=== PATIENT | male | born 1975 | race Caucasian/White ===

== ENCOUNTER 2017-03-21 18:48 | Observation (INO) | payer BC ==
[~2017-03-21] VITALS: Ht 160 cm; Wt 110.0 kg
[~2017-03-21 18:48] MED LIST: LXP/20 PO
--- NOTE | 2017-03-21 19:23 | EMERGENCY ROOM VISIT NOTE ---
History Report prepared by Cole: Kristin Lagunas Under the Supervision of: Dr. Stewart Spence M.D. First contact with patient: 18:57 Chief Complaint: WEAKNESS Stated Complaint: SLURRED SPEECH,HIGH BP 158/90,DROOP IN FACE History of Present Illness The patient is a 41 year old male who presents to the Emergency Room with complaints of constant weakness for the past 3.5 hours. The patient was at work today when suddenly around 1545 he felt very weak all over. He states that he felt "drained of energy and confused." He reports having trouble focusing. After his symptoms persisted for about 15 minutes he told a coworker who is also a nurse. She checked his pulse and blood pressure. His pulse was over 100 and his BP was 158/90. He lay down on the floor for 15-20 minutes and rested. She checked his vitals again and they had improved. The patient states that he waited a few more minutes, felt better and then drove himself home. While he was driving his left arm and hand felt weaker than the right. He reports tingling and numbness in his left hand. Family states that when the patient arrived home they noticed a right-sided facial droop and his speech was slurred. This lasted for just a few minutes. The patient took an aspirin and came to the ED for further evaluation. He denies any personal history of strokes or mini-strokes. He has never experienced symptoms like this before. The patient reports that he has been having intermittent headaches recently and today had only a brief episode of a headache. He also notes trouble urinating and having a bowel movement today. The patient denies any recent trauma or fall. He denies fevers, nausea, vomiting, and diarrhea. He denies any new medications or recent changes to his medications. 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 A total of 10 systems reviewed and were otherwise negative. Past Medical & Surgical Medical Problems: (1) Anxiety Family History No pertinent history stated. Social History Smoking Status: Never Smoker Housing Status: lives with family Occupation Status: employed Current/Historical Medications Scheduled Amphetamine-Dextroamphetamine 10MG (Adderall 10MG), 10 MG PO BID Atorvastatin (Lipitor), 20 MG PO QPM Paroxetine Hcl (Paxil), 30 MG PO DAILY Trazodone Hcl (Trazodone), 50 MG PO HS Allergies Coded Allergies: Dog Dander (Verified Allergy, Unknown, ., 03/21/17) Physical Exam Vital Signs Date Time Temp Pulse Resp B/P (MAP) Pulse Ox O2 Delivery O2 Flow Rate FiO2 03/21/17 20:02 87 20 131/87 97 Room Air 03/21/17 19:13 97 Room Air 03/21/17 18:53 36.9 90 20 140/94 97 Room Air Physical Exam GENERAL: Patient is in no acute distress. HEENT: No acute trauma, normocephalic atraumatic, mucous membranes moist, no nasal congestion, no scleral icterus. NECK: No stridor, no adenopathy, no meningismus, trachea is midline. LUNGS: Clear to auscultation bilaterally, no wheeze, no rhonchi, breath sounds equal. HEART: Without murmurs gallops or rubs, regular rate and rhythm. ABDOMEN: Soft, nontender, bowel sounds positive, no hernias, no peritonitis. EXTREMITIES: No cyanosis or edema, full range of motion of all the joints without pain or difficulty, no signs for acute trauma. NEUROLOGIC: Oriented x 3, no acute motor or sensory deficits, no focal weakness. No cerebellar deficits or pronator drift. No speech slur or facial droop. SKIN: No rash, no jaundice, no diaphoresis. Medical Decision & Procedures ER Provider Diagnostic Interpretation: Radiology results as stated below per my review and radiologist interpretation: HEAD WITHOUT CONTRAST (CT) CLINICAL HISTORY: 41 years-old Male with Stroke. Acute strokelike symptoms TECHNIQUE: Multiple axial CT images of the head were obtained without contrast. A dose lowering technique was utilized adhering to the principles of ALARA. CT DOSE: 537.48 mGy.cm COMPARISON: None. FINDINGS: No acute intracranial hemorrhage, midline shift, intracranial mass, hydrocephalus, territorial ischemia or abnormal extra-axial collection. The calvarium is intact. The mastoid air cells, and middle ear cavities are clear. Minimal thickening of the right ethmoid air cells. IMPRESSION: No acute intracranial abnormality. The above report was generated using voice recognition software. It may contain grammatical, syntax or spelling errors. Electronically signed by: Robin Encarnacion M.D. 03/21/2017 7:32 PM Dictated Date/Time: 03/21/2017 7:30 PM Laboratory Results 03/21/17 19:08 Red Blood Count 4.68, Mean Corpuscular Volume 83.3, Mean Corpuscular Hemoglobin 28.4, Mean Corpuscular Hemoglobin Concent 34.1, Mean Platelet Volume 9.4, Neutrophils (%) (Auto) 63.8, Lymphocytes (%) (Auto) 28.7, Monocytes (%) (Auto) 6.4, Eosinophils (%) (Auto) 0.5, Basophils (%) (Auto) 0.3, Neutrophils # (Auto) 6.80, Lymphocytes # (Auto) 3.05, Monocytes # (Auto) 0.68, Eosinophils # (Auto) 0.05, Basophils # (Auto) 0.03 03/21/17 19:08 Test 03/21/17 19:08 03/21/17 19:20 03/21/17 20:07 03/21/17 20:09 White Blood Count 10.64 K/uL (4.8-10.8) Red Blood Count 4.68 M/uL (4.7-6.1) Hemoglobin 13.3 g/dL (14.0-18.0) Hematocrit 39.0 % (42-52) Mean Corpuscular Volume 83.3 fL (80-100) Mean Corpuscular Hemoglobin 28.4 pg (25-34) Mean Corpuscular Hemoglobin Concent 34.1 g/dl (32-36) Platelet Count 311 K/uL (130-400) Mean Platelet Volume 9.4 fL (7.4-10.4) Neutrophils (%) (Auto) 63.8 % Lymphocytes (%) (Auto) 28.7 % Monocytes (%) (Auto) 6.4 % Eosinophils (%) (Auto) 0.5 % Basophils (%) (Auto) 0.3 % Neutrophils # (Auto) 6.80 K/uL (1.4-6.5) Lymphocytes # (Auto) 3.05 K/uL (1.2-3.4) Monocytes # (Auto) 0.68 K/uL (0.11-0.59) Eosinophils # (Auto) 0.05 K/uL (0-0.5) Basophils # (Auto) 0.03 K/uL (0-0.2) RDW Standard Deviation 39.7 fL (36.4-46.3) RDW Coefficient of Variation 13.2 % (11.5-14.5) Immature Granulocyte % (Auto) 0.3 % Immature Granulocyte # (Auto) 0.03 K/uL (0.00-0.02) Prothrombin Time 11.1 SECONDS (9.0-12.0) Prothromb Time International Ratio 1.1 (0.9-1.1) Activated Partial Thromboplast Time 28.3 SECONDS (21.0-31.0) Partial Thromboplastin Ratio 1.1 Anion Gap 9.0 mmol/L (3-11) Est Creatinine Clear Calc Drug Dose 98.5 ml/min Estimated GFR () 96.5 Estimated GFR (Non- 83.3 BUN/Creatinine Ratio 11.7 (10-20) Calcium Level 9.2 mg/dl (8.5-10.1) Magnesium Level 2.1 mg/dl (1.8-2.4) Total Bilirubin 0.3 mg/dl (0.2-1) Direct Bilirubin < 0.1 mg/dl (0-0.2) Aspartate Amino Transf (AST/SGOT) 17 U/L (15-37) Alanine Aminotransferase (ALT/SGPT) 25 U/L (12-78) Alkaline Phosphatase 80 U/L (45-117) Total Creatine Kinase 217 U/L (39-308) Creatine Kinase MB 1.2 ng/ml (0.5-3.6) Creatine Kinase MB Ratio 0.6 (0-3.0) Troponin I < 0.015 ng/ml (0-0.045) Total Protein 8.1 gm/dl (6.4-8.2) Albumin 3.9 gm/dl (3.4-5.0) Urine Color YELLOW Urine Appearance CLEAR (CLEAR) Urine pH 8.0 (4.5-7.5) Urine Specific [place] 1.010 (1.000-1.030) Urine Protein NEG (NEG) Urine Glucose (UA) NEG (NEG) Urine Ketones NEG (NEG) Urine Occult Blood NEG (NEG) Urine Nitrite NEG (NEG) Urine Bilirubin NEG (NEG) Urine Urobilinogen NEG (NEG) Urine Leukocyte Esterase NEG (NEG) Urine Opiates Screen NEG (NEG) Urine Methadone, Qualitative NEG (NEG) Urine Barbiturates NEG (NEG) Urine Phencyclidine (PCP) Level NEG (NEG) Ur Amphetamine/Methamphetamine NEG (NEG) MDMA (Ecstasy) Screen NEG (NEG) Urine Benzodiazepines Screen NEG (NEG) Urine Cocaine Metabolite NEG (NEG) Urine Marijuana (THC) NEG (NEG) Laboratory results reviewed by me. ECG Indication: weakness Rate (beats per minute): 84 Rhythm: normal sinus Findings: 1st degree AV block, no acute ischemic change, no ectopy Change: EKG interpreted by me. ED Course 1857: The patient was evaluated in room B7. A complete history and physical exam was performed. 1999: I reassessed the patient at this time. He is feeling better and resting comfortably. I discussed the results and treatment plan with the patient. I answered all pertaining questions that he had. He expressed understanding and verbalized agreement. 2004: I spoke with Dr. Fernandes. We discussed the patients case. The patient will be evaluated by the [facility] for further management. Medical Decision Differential diagnoses includes medication reaction, infection, dehydration, electrolyte imbalance, anemia, stroke, intracranial bleed, TIA, liver failure, renal failure. There is no leukocytosis or concerning anemia. No significant electrolyte abnormality, kidney failure or hepatitis. No coagulopathy. Urinalysis does not show infection. Urine tox is negative. Brain CT shows no acute bleed or mass effect. EKG shows a sinus rhythm with a first-degree AV block, no acute ischemia. Cardiac enzyme testing 1 is not consistent with acute cardiac injury. Ammonia and alcohol levels are still pending. The patient had already taken aspirin prior to arrival, no additional aspirin was given. He has not had any recurrence of symptoms while here in the ED. The patient presents with strokelike symptoms. He needs a further workup in the hospital. The cause for his presentation is at this point still unclear. Of note, the patient is not a candidate for TPA, his symptoms have resolved, he is out of the TPA window. I spoke to the patient and case management. The on-call hospitalist was consulted. Medication Reconcilliation Current Medication List: was personally reviewed by me Blood Pressure Screening Patient's blood pressure: Elevated blood pressure Blood pressure disposition: Elevated BP felt to be situational Consults Time Called: 2002 Consulting Physician: Dr. Fernandes Returned Call: [address] Fernandes. We discussed the patients case. [facility]. Impression Primary Impression: Stroke-like symptoms Scribe Attestation The scribe's documentation has been prepared under my direction and personally reviewed by me in its entirety. I confirm that the note above accurately reflects all work, treatment, procedures, and medical decision making performed by me. Departure Information Referrals Aleks Matute M.D. (PCP) Patient Instructions My [facility] Stroke History Time Last Known Well 1545 Stroke t-PA Criteria Reviewed Does NOT meet criteria for t-PA Reason t-PA Not Given Treatment not indicated
--- NOTE | 2017-03-21 19:33 | DIAGNOSTIC IMAGING REPORT ---
HEAD WITHOUT CONTRAST (CT) CLINICAL HISTORY: 41 years-old Male with Stroke. Acute strokelike symptoms TECHNIQUE: Multiple axial CT images of the head were obtained without contrast. A dose lowering technique was utilized adhering to the principles of ALARA. CT DOSE: 537.48 mGy.cm COMPARISON: None. FINDINGS: No acute intracranial hemorrhage, midline shift, intracranial mass, hydrocephalus, territorial ischemia or abnormal extra-axial collection. The calvarium is intact. The mastoid air cells, and middle ear cavities are clear. Minimal thickening of the right ethmoid air cells. IMPRESSION: No acute intracranial abnormality. The above report was generated using voice recognition software. It may contain grammatical, syntax or spelling errors. Electronically signed by: Robin Encarnacion M.D. 03/21/2017 7:32 PM Dictated Date/Time: 03/21/2017 7:30 PM
[2017-03-21 19:34] LABS: BASO % 0.3 %; BASO ABS # 0.03 K/uL (0-0.2); EOS % 0.5 %; EOS ABS # 0.05 K/uL (0-0.5); HEMOGLOBIN 13.3 g/dL (14.0-18.0); IG# 0.03 K/uL (0.00-0.02); LYMPH % 28.7 %; LYMPH ABS # 3.05 K/uL (1.2-3.4); MEAN CELL VOLUME 83.3 fL (80-100); MEAN CORPUSCULAR HEMOGLOBIN 28.4 pg (25-34); MEAN CORPUSCULAR HGB CONC 34.1 g/dl (32-36); MEAN PLATELET VOLUME 9.4 fL (7.4-10.4); MONO % 6.4 %; MONO ABS # 0.68 K/uL (0.11-0.59); NEUT % 63.8 %; PLATELET COUNT 311 K/uL (130-400); RED CELL DISTRIBUTION WIDTH CV 13.2 % (11.5-14.5); RED CELL DISTRIBUTION WIDTH SD 39.7 fL (36.4-46.3); WHITE BLOOD COUNT 10.64 K/uL (4.8-10.8)
[2017-03-21 19:43] LABS: INR 1.1 (0.9-1.1); PTT PATIENT 28.3 SECONDS (21.0-31.0)
[2017-03-21 19:54] LABS: ALBUMIN 3.9 gm/dl (3.4-5.0); ALT/SGPT 25 U/L (12-78); BLOOD UREA NITROGEN 13 mg/dl (7-18); CALCIUM 9.2 mg/dl (8.5-10.1); CARBON DIOXIDE 27 mmol/L (21-32); CREATININE 1.09 mg/dl (0.60-1.40); GLUCOSE 105 mg/dl (70-99); POTASSIUM 3.7 mmol/L (3.5-5.1); SODIUM 137 mmol/L (136-145)
[2017-03-21 19:59] LABS: ALKALINE PHOSPHATASE 80 U/L (45-117); AST/SGOT 17 U/L (15-37); CKMB 1.2 ng/ml (0.5-3.6); TOTAL PROTEIN 8.1 gm/dl (6.4-8.2)
[2017-03-21] MEDS ORDERED: ATOR-22 PO (20:12)
[2017-03-21] MEDS ORDERED: TRAZ50TA35 PO (20:12)
[2017-03-21] MEDS ORDERED: AMPH10TA2 PO (20:12)
[2017-03-21] MEDS ORDERED: PARO30TA PO (20:12)
[2017-03-21] MEDS ORDERED: NSS + 20MEQ KCL 1000ML 1,000 ML IV ONE (22:30)
[2017-03-21] MEDS ORDERED: PROCHLORPERAZINE INJ 5 MG in SYRINGE 4 ML IV PRN (22:30)
[2017-03-21] MEDS ORDERED: TRAMADOL HCL 50 MG TAB PO PRN (22:30)
[2017-03-21] MEDS ORDERED: NITROGLYCERIN 0.4 MG SL PER TAB CHARGE SL PRN (22:30)
[2017-03-21] MEDS ORDERED: PHARMACIST DISCHARGE MED REC CONSULT PRN (22:30)
[2017-03-21] MEDS ORDERED: ACETAMINOPHEN 325 MG TAB PO PRN (22:30)
[2017-03-21] MEDS ORDERED: MoRPHine SULFATE 4 MG/ML 1 ML CARP\\VIAL IV PRN (22:30)
[2017-03-21] MEDS ORDERED: LORAZEPAM 2 MG/ML 1 ML VIAL IV PRN (22:30)
[2017-03-21 23:00] VITALS: BP 128/78; PULSE 86; TEMP 36.9; O2SAT 97; Ht 160 cm; Wt 110.0 kg
[2017-03-21] MEDS ORDERED: LORAZEPAM INJ 0.5 MG in SYRINGE 0.75 ML IV PRN (23:15)
[2017-03-22] VITALS (8 sets, daily range): BP systolic 107–137; BP diastolic 72–83; PULSE 69–79; TEMP 36.4–36.9; O2SAT 95–97
--- NOTE | 2017-03-22 02:49 | HISTORY & PHYSICAL EXAMINATION ---
DATE OF ADMISSION: 03/21/2017 PRIMARY CARE DOCTOR: Aleks Matute MD. CHIEF COMPLAINT: Slurred speech, left arm weakness. HISTORY OF PRESENT ILLNESS: History obtained from patient, patient's family, and records. Medical history significant for hyperlipidemia, EMILY on CPAP, hemorrhoids, mood disorder, attention deficit. Patient was at work in the afternoon when he felt weak, had trouble focusing. Easily agitated than usual this week A coworker (who was a nurse) checked his pulse and blood pressure -both noted to be slightly elevated. The patient rested for a while. On his way home, he also noted transient vertical headache symptoms, achy. No blurred vision. He felt left arm noted to be a little weak and numb. No neck pain. When he got home, he was told he had transient slurred speech, right-sided facial drooping. Patient took his father's aspirin. Improving symptoms noted en route to the hospital. Symptoms currently resolved at the ER. Mother told him that a few days ago he was having some weird mouth asymmetry which patient was not aware of. MEDICAL HISTORY: As above. SURGERIES: None. HOME MEDICATIONS: Adderall, Lipitor, Paxil, trazodone. ALLERGIES: DOG DANDER. PERSONAL AND SOCIAL HISTORY: Nonsmoker. No chronic intake of alcohol beverages. 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 REVIEW OF SYSTEMS: As per HPI. Intermittent hemorrhoidal bleed. All 10 systems reviewed. All other ROS negative. PHYSICAL EXAMINATION: VITAL SIGNS: Blood pressure was noted to be 131/87, pulse rate 87, RR 20, T 37, sats 97 on room air. GENERAL: Noted to be obese, slightly anxious, no respiratory distress. SKIN: Pallor. Warm. HEENT: Alopecia. Pale palpebral conjunctivae. No ptosis. Dry mucosa. No facial asymmetry. NECK: Short neck, nontender. CHEST: Clear to auscultation. No tenderness. HEART: Regular rate and rhythm, no murmur. ABDOMEN: Soft, nontender. EXTREMITIES: No edema, no tenderness. No gross deformity. NEUROLOGIC: Coherent. No gross focality. LABORATORY DATA: Hemoglobin was noted to be 13.3, hematocrit 39, white cells 10.6, platelets 311. Sodium 137, potassium 3.7, chloride 101, CO2 27, BUN 30, creatinine 1, glucose 105. Ammonia 32. CT head, no acute pathology. EKG as per my interpretation, rate 85, normal sinus rhythm, first degree block, nonspecific T-wave abnormalities in the inferior leads. ASSESSMENT AND PLAN: 1. Transient ischemic attack. Patient has risk factors for cerebrovascular disease. Hyperlipidemia on statin therapy, obesity, EMILY on CPAP, family history. 2. Attention deficit disorder/mood disorder Patient admits to being agitated this week more than usual. 3. Normocytic anemia no baseline possibly from intermittent hemorrhoidal bleeding. Patient is asymptomatic. Observation PCU, neuro checks ASA, continue statin for now for stroke prevention. MRI/MRA of the brain. RE TIA Neurology consult RE TIA. Check lipid profile Anemia workup DVT prophylaxis, SCDs RE regarding anemia until occult GI bleed ruled out Full code. MTDD
[2017-03-22 04:14] LABS: BASO % 0.4 %; BASO ABS # 0.05 K/uL (0-0.2); EOS % 1.3 %; EOS ABS # 0.15 K/uL (0-0.5); HEMATOCRIT 36.8 % (42-52); HEMOGLOBIN 12.6 g/dL (14.0-18.0); IG# 0.02 K/uL (0.00-0.02); LYMPH % 37.5 %; LYMPH ABS # 4.28 K/uL (1.2-3.4); MEAN CELL VOLUME 83.3 fL (80-100); MEAN CORPUSCULAR HEMOGLOBIN 28.5 pg (25-34); MEAN CORPUSCULAR HGB CONC 34.2 g/dl (32-36); MEAN PLATELET VOLUME 9.4 fL (7.4-10.4); MONO % 8.9 %; MONO ABS # 1.02 K/uL (0.11-0.59); NEUT % 51.7 %; NEUT ABS # 5.89 K/uL (1.4-6.5); PLATELET COUNT 270 K/uL (130-400); RED CELL DISTRIBUTION WIDTH CV 13.3 % (11.5-14.5); RED CELL DISTRIBUTION WIDTH SD 40.2 fL (36.4-46.3); RETIC COUNT % 1.7 % (0.5-2.0); WHITE BLOOD COUNT 11.41 K/uL (4.8-10.8)
[2017-03-22 04:53] LABS: ALBUMIN 3.4 gm/dl (3.4-5.0); ALKALINE PHOSPHATASE 74 U/L (45-117); ALT/SGPT 23 U/L (12-78); AST/SGOT 12 U/L (15-37); BLOOD UREA NITROGEN 14 mg/dl (7-18); CALCIUM 8.9 mg/dl (8.5-10.1); CARBON DIOXIDE 27 mmol/L (21-32); CREATININE 1.09 mg/dl (0.60-1.40); GLUCOSE 111 mg/dl (70-99); LIPASE 247 U/L (73-393); POTASSIUM 3.7 mmol/L (3.5-5.1); SODIUM 139 mmol/L (136-145); TRANSFERRIN 192 mg/dl (200-360)
[2017-03-22] MEDS ORDERED: INFLUENZA VIRUS QUAD VACCINE 0.5 ML SYR IM. ONE (05:00)
[2017-03-22] MEDS ORDERED: PNEUMOCOCCAL POLYSACCHARIDES 25 MCG/0.5 ML VIAL/SYR IM. ONE (05:00)
[2017-03-22] MEDS ORDERED: IV FLUIDS COMPLETED PRN (05:00)
[2017-03-22] MEDS ORDERED: INFLUENZA ADMINISTRATION CHARGE ONE (05:00)
[2017-03-22] MEDS ORDERED: PNEUMOCOCCAL ADMINISTRATION CHARGE ONE (05:00)
[2017-03-22] MEDS: AMPHETAMINE ASP/SULF/DEXTRAMPH 10 MG TAB PO SCH ×2 (06:00→13:24)
--- NOTE | 2017-03-22 06:59 | DIAGNOSTIC IMAGING REPORT ---
MR ANGIOGRAM OF THE BRAIN CLINICAL HISTORY: Transient ischemic attack. COMPARISON STUDY: MRI of the brain performed concurrently on 03/21/2017. TECHNIQUE: 3-D [id number] MR angiography of the intracranial circulation is performed. 3-D tumble views are created and assessed. IV contrast was not administered for this examination. FINDINGS: There is a large right posterior communicating artery. The internal carotid arteries are widely patent bilaterally, as are the anterior and middle cerebral arteries. The vertebrobasilar system and posterior cerebral arteries are widely patent. The vertebral arteries are codominant. There is no aneurysm, high-grade stenosis, or focal vessel cutoff seen throughout the intracranial circulation. The brain parenchyma is normal as visualized. IMPRESSION: Unremarkable MR angiogram of the brain. Electronically signed by: Stewart Keating M.D. 03/22/2017 6:57 AM Dictated Date/Time: 03/22/2017 6:55 AM
--- NOTE | 2017-03-22 07:37 | DIAGNOSTIC IMAGING REPORT ---
MRI OF THE BRAIN WITHOUT IV CONTRAST CLINICAL HISTORY: Transient ischemic attack. COMPARISON STUDY: CT of the brain dated 03/21/2017. TECHNIQUE: MRI of the brain was performed utilizing various T1 and T2-weighted sequences in the axial, sagittal, and coronal planes. IV contrast was not administered for this examination. FINDINGS: Brain parenchyma: The brain parenchyma is normal in appearance. There is no hemorrhage or mass effect. There is no restricted diffusion to suggest acute ischemia. Britt-white matter differentiation is preserved. No extra-axial fluid collection is seen. The cerebellar tonsils are normal in configuration. Ventricles, sulci, and cisterns: Normal in configuration. Pituitary and sella: Unremarkable. Intracranial vasculature: Normal flow voids are maintained at the skull base. Orbits: The bony orbits are grossly intact. Orbital contents are normal in appearance. Sinuses and mastoids: Clear. Calvarium: Unremarkable. Cervical cord: Partially visualized cervical spinal cord is normal in morphology and signal intensity. IMPRESSION: No acute intracranial abnormality. Electronically signed by: Stewart Keating M.D. 03/22/2017 7:36 AM Dictated Date/Time: 03/22/2017 7:34 AM
--- NOTE | 2017-03-22 08:38 | DIAGNOSTIC IMAGING REPORT ---
SINGLE VIEW CHEST CLINICAL HISTORY: Atypical chest pain. FINDINGS: An AP, portable, upright chest radiograph is obtained. No prior studies are available for comparison at the time of dictation. The examination is mildly degraded by portable technique and patient rotation. The cardiomediastinal silhouette is unremarkable. The lungs and pleural spaces are clear. No pneumothorax is seen. The bony thorax is grossly intact. IMPRESSION: No active disease in the chest. Electronically signed by: Stewart Keating M.D. 03/22/2017 8:36 AM Dictated Date/Time: 03/22/2017 8:36 AM
[2017-03-22] MEDS ORDERED: ASPIRIN 81 MG ECTAB PO SCH (09:00)
[2017-03-22] MEDS ORDERED: PAROXETINE 30 MG TAB PO SCH (09:00)
--- NOTE | 2017-03-22 12:40 | NEUROLOGY CONSULTATION ---
DATE OF CONSULTATION: 03/22/2017 REASON FOR CONSULTATION: Possible transient ischemic attack. HISTORY OF PRESENT ILLNESS: The patient is a 41-year-old with ADD, anxiety, hyperlipidemia, and sleep apnea, who was in his usual state of health and at sleep apnea. He was at work and he felt generally fatigued with poor focus and vaguely described lightheadedness. This lasted about 15 minutes and he asked a coworker to check his vitals. Blood pressure was 158/98 and his pulse was 100. He laid down at work for about 15 or so minutes and the repeated blood pressure was 137/80. He decided to drive home. He began to feel extremely anxious as in the prior anxiety attacks. He noted tingling and weakness of his left arm and hand with a cold feeling. When he arrived home, he this had persisted. His mother saw that his right face was drooped, but there was a little bit of bulging in the left face and that his speech was mildly slurred. In retrospect, apparently his mother had noted some change in speech the day before. He had had a minor accompanying vertex, non-throbbing headache. There was some associated chest pain and shortness of breath. He has had similar episode, which seemed as panic attacks, which had been previously shorter and improved since he started Paxil and Adderall 2 months ago. There was no accompanying change in vision other than some mild blurred vision. There was no scintillating visual phenomenon. There was no vertigo, nausea, or vomiting. There was some mild shortness of breath accompanying the chest pain. He has not been ill. He has noted for sometimes some mild exertional headache. He notes that if he goes up steps, he would get a mild to throbbing headache and occasionally a throbbing headache with lifting. He has no greying out of vision associated with those headaches and he has had a very recently normal ophthalmologic exam. He has had no recent head or neck injury. He has not recently been ill. He has not had any medical or dental procedures. MEDICATIONS: Adderall and Paxil were new 2 months ago. Otherwise, no medications have been changed and he does not take anything over the counter. PAST MEDICAL HISTORY: As above. No history of diabetes, hypertension, rheumatic fever, murmur, DVT. The patient occasionally has throbbing headache. PAST SURGICAL HISTORY: None. SOCIAL HISTORY: Does not smoke, occasionally drinks alcohol. 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 FAMILY HISTORY: Mother has an early onset Alzheimer disease and osteoarthritis. Father had a ruptured AVM and then 10 years later had a stroke related to the AVM. He also has had a DVT. The patient has no children. ALLERGIES: DOG DANDER. MEDICATIONS PRIOR TO ADMISSION: Adderall, Lipitor, Paxil and trazodone. IMAGING STUDIES: MRI of the brain noncontrast is unremarkable. There maybe some minor cerebellar tonsillar ectopia, although this was not called by radiology. MRA of the head was normal. EKG showed sinus rhythm with a first-degree AV block, nonspecific T-wave abnormalities in the inferior leads. LABORATORY DATA: White count 10.6, H&H 13.3/39, platelet count 311. PT and PTT normal. Chemistry profile notable for a random glucose of 111. Normal transaminases. PHYSICAL EXAMINATION: VITAL SIGNS: Temperature 36.5, pulse 69, respirations 20, blood pressure 107/72, saturations 97%. GENERAL: The patient is awake and alert. He has normal speech and language. His affect is appropriate head. HEENT: His head is normocephalic and atraumatic. There are no carotid bruits. No heart murmurs. ABDOMEN: Soft, nontender. NEUROLOGIC: Radial and dorsalis pedis pulses are intact. No spinal deformities are noted. Pupils are equal, round, and reactive to light. Optic nerves grossly appeared normal. I did not appreciate any papilledema. There are normal herrera, motility, facial sensation and symmetry. Speech and language are normal. Tongue is midline. Motor 5/5. No drift. Normal rapid alternating movements. Symmetric reflexes, which are exaggerated by the patient, but no pathological reflexes. No clonus. Toes are downgoing. [id number] and [id number] are normal. Gait is unremarkable. Sensation intact to light touch, temperature and vibration. IMPRESSION: Transient ischemic attack versus panic attack versus migraine. PLAN: I agree with antiplatelet therapy, risk factor modification. I would obtain an MRI of the brain with contrast given his father's history of intracranial AVM. With that, I would do an MRA of the neck and for the anterior and posterior circulation, telemetry monitoring is appropriate. I would make sure that the LDL was less than 70. I will order a hypercoagulable state workup as father has had DVTs. This may have been a panic attack, although to have some dysarthria and facial droop would be somewhat unusual. That is a diagnosis of exclusion, I would certainly discharge the patient on antiplatelet therapy and modify any if there is risk. If he continues to have episodes, then they should be evaluated and if imaging, etc. is normal, one might want to consider his psychiatrist or a primary care doctor adjust the medications for anxiety or panic. As an outpatient, he should see us and likely, we will schedule a Zio patch for further monitoring. FLORENCIAD
--- NOTE | 2017-03-22 13:06 | DIAGNOSTIC IMAGING REPORT ---
MRI OF THE BRAIN COMBO CLINICAL HISTORY: Transient ischemic attack. COMPARISON STUDY: MRI of the brain dated 03/21/2017. TECHNIQUE: MRI of the brain was performed utilizing various T1 and T2-weighted sequences in the axial, sagittal, and coronal planes. Contrast-enhanced sequences were acquired following the administration of 11 cc of Gadavist. FINDINGS: Brain parenchyma: The brain parenchyma is normal in appearance. There is no hemorrhage or mass effect. There is no restricted diffusion to suggest acute ischemia. No enhancing mass lesion is identified on the postcontrast images. Britt-white matter differentiation is preserved. No extra-axial fluid collection is seen. The cerebellar tonsils are normal in configuration. Ventricles, sulci, and cisterns: Normal in configuration. Pituitary and sella: Unremarkable. Intracranial vasculature: Normal flow voids are maintained at the skull base. Orbits: The bony orbits are grossly intact. Orbital contents are normal in appearance. Sinuses and mastoids: Clear. Calvarium: Unremarkable. Cervical cord: Partially visualized cervical spinal cord is normal in morphology and signal intensity. IMPRESSION: No acute intracranial abnormality. No change from yesterday. Electronically signed by: Stewart Keating M.D. 03/22/2017 1:05 PM Dictated Date/Time: 03/22/2017 1:03 PM
--- NOTE | 2017-03-22 13:19 | DIAGNOSTIC IMAGING REPORT ---
MR ANGIOGRAM OF THE NECK COMBO CLINICAL HISTORY: Transient ischemic attack. COMPARISON STUDY: No priors.. TECHNIQUE: Axial 3-D [id number] MR angiography of the neck is performed. Subsequently, following the IV administration of 20 cc of Gadavist. Coronal MR angiogram of the neck was performed to corroborate the findings. 3-D reformats are created and assessed. All measurements were calculated based on NASCET criteria. FINDINGS: Visualized portions of the thoracic aorta are normal in caliber. The aortic arch demonstrates standard 3-vessel anatomy. The subclavian arteries are widely patent bilaterally. The right common carotid artery is widely patent, as are the right internal and external carotid arteries. The left common carotid artery is widely patent, as are the left internal and external carotid arteries. The vertebral arteries are widely patent. The vertebral arteries are codominant. The visualized intracranial vessels at the skull base appear patent. IMPRESSION: Unremarkable MR angiogram of the neck. Electronically signed by: Stewart Keating M.D. 03/22/2017 1:17 PM Dictated Date/Time: 03/22/2017 1:16 PM
--- NOTE | 2017-03-22 13:30 | ECHOCARDIOGRAM REPORT ---
*NOTICE TO RECEIVING REPUBLICAN AGENCY This information is strictly Confidential and protected under [place] law. [place] law prohibits you from making any further disclosure of this information unless further disclosure is expressly permitted by the written consent of the person to whom it pertains or is authorized by law. A general authorization for the release of medical or other information is not sufficient for this purpose. Hospital accepts no responsibility if the information is made available to any other person, INCLUDING THE PATIENT. Interpretation Summary * Name: TOM GIBBS Study Date: 03/22/2017 11:02 AM BP: 122/80 mmHg * Patient Location: [facility]\S\N283\S\1 HR: 69 * : 1975 (M/d/yyyy) Gender: Male Height: 63 in * Age: 41 yrs Ethnicity: [place] Weight: 246 lb * Ordering Physician: Jose Fernandes * Referring Physician: No Doctor, Assigned * Performed By: Blessing Xie RCS * * Reason For Study: TIA / CHEST PAIN * BSA: 2.1 m2 * -- Conclusions -- * Normal LV chamber size with mild concentric LVH. * Normal LV systolic function, EF 60-65%. * No segmental left ventricular wall motion abnormalities are noted. * Normal diastolic function. * No significant valvular pathology. * Intact interatrial septum. Procedure Details * A complete two-dimensional transthoracic echocardiogram was performed (2D, M-mode, Doppler and color flow Doppler). * A saline contrast injection was performed to assess for cardiac shunting. * The injection was performed through an intravenous line in the left arm. * The attending nurse who injected the saline contrast was KEN CLARK RN. * A total of 20 cc of agitated saline was given. Left Ventricle * The left ventricle is normal in size. * There is mild concentric left ventricular hypertrophy. * Left ventricular systolic function is normal. * No segmental left ventricular wall motion abnormalities are noted. * Ejection Fraction = 60-65%. * The left ventricular wall motion is normal at rest. Right Ventricle * The right ventricular cavity size is normal (basal dimension <4.2 cm in right ventricular apical 4-chamber view). * The right ventricular systolic function is normal as assessed by tricuspid annular plane systolic excursion (TAPSE) (normal >1.5 cm). Atria * The left atrial size is normal. * Right atrial size is normal. * The interatrial septum is intact with no evidence for an atrial septal defect. Mitral Valve * The mitral valve is normal in structure and function. Tricuspid Valve * The tricuspid valve is normal in structure and function. Aortic Valve * The aortic valve is normal in structure and function. Pulmonic Valve * The pulmonary valve is not well seen, but the Doppler examination is normal without significant regurgitation or stenosis. Great Vessels * The aortic root is normal size. Pericardium/Pleural * There is no pericardial effusion. Left Ventricular Diastolic Function * Pulse wave TDI of the anterior and posterior mitral annulas demonstrates normal LV relaxation MMode 2D Measurements and Calculations IVSd 1.4 cm IVSs 1.8 cm LVIDd 4.0 cm LVIDs 2.8 cm LVPWd 1.4 cm LVPWs 1.5 cm IVS/LVPW 1.0 FS 30.8 % EDV(Teich) 71.9 ml ESV(Teich) 29.5 ml EF(Teich) 58.9 % EDV(cubed) 66.2 ml ESV(cubed) 22.0 ml EF(cubed) 66.8 % % IVS thick 25.7 % % LVPW thick 4.5 % LV mass(C)d 211.2 grams LV mass(C)dI 100.0 grams/m\S\2 LV mass(C)s 163.0 grams LV mass(C)sI 77.2 grams/m\S\2 SV(Teich) 42.4 ml SI(Teich) 20.1 ml/m\S\2 SV(cubed) 44.3 ml SI(cubed) 21.0 ml/m\S\2 Ao root diam 2.9 cm Ao root area 6.8 cm\S\2 ACS 2.1 cm LA dimension 3.4 cm LA/Ao 1.2 LVOT diam 2.0 cm LVOT area 3.3 cm\S\2 Doppler Measurements and Calculations MV E max keiry 91.1 cm/sec MV A max keiry 69.0 cm/sec MV E/A 1.3 MV P1/2t max keiry 90.6 cm/sec MV P1/2t 49.3 msec MVA(P1/2t) 4.5 cm\S\2 MV dec slope 538.4 cm/sec\S\2 MV dec time 0.16 sec PA V2 max 100.9 cm/sec PA max PG 4.1 mmHg TR max keiry 238.1 cm/sec
--- NOTE | 2017-03-22 16:01 | Progress Note ---
Medicine Progress Note Date & Time of Visit: Mar 22, 2017 at 16:01 . Subjective Doing well. No headache. No further neuro symptoms. No CP or SOB. . Objective Last 8 Hrs Date Time Temp Pulse Resp B/P (MAP) Pulse Ox O2 Delivery O2 Flow Rate FiO2 03/22/17 15:58 36.4 78 18 137/83 (101) 96 Room Air 03/22/17 15:23 75 95 03/22/17 12:00 97 Room Air Physical Exam: General- no distress Lungs- clear to auscultation; no respiratory distress Cardiovascular- RRR; no murmur; no gallop; no JVD; no pretibial edema Abdomen- + bowel sounds, soft, nontender Extremities- no cyanosis; no calf tenderness Neuro- alert, oriented; PERRL, EOMI; no facial palsy; no dysarthria; motor strength extremities grossly intact Skin- warm & dry . Laboratory Results: Last 24 Hours Test 03/21/17 19:08 03/21/17 19:20 03/21/17 20:09 03/22/17 03:44 White Blood Count 10.64 K/uL Red Blood Count 4.68 M/uL Hemoglobin 13.3 g/dL Hematocrit 39.0 % Mean Corpuscular Volume 83.3 fL Mean Corpuscular Hemoglobin 28.4 pg Mean Corpuscular Hemoglobin Concent 34.1 g/dl Platelet Count 311 K/uL Mean Platelet Volume 9.4 fL Neutrophils (%) (Auto) 63.8 % Lymphocytes (%) (Auto) 28.7 % Monocytes (%) (Auto) 6.4 % Eosinophils (%) (Auto) 0.5 % Basophils (%) (Auto) 0.3 % Neutrophils # (Auto) 6.80 K/uL Lymphocytes # (Auto) 3.05 K/uL Monocytes # (Auto) 0.68 K/uL Eosinophils # (Auto) 0.05 K/uL Basophils # (Auto) 0.03 K/uL RDW Standard Deviation 39.7 fL RDW Coefficient of Variation 13.2 % Immature Granulocyte % (Auto) 0.3 % Immature Granulocyte # (Auto) 0.03 K/uL Prothrombin Time 11.1 SECONDS Prothromb Time International Ratio 1.1 Activated Partial Thromboplast Time 28.3 SECONDS Partial Thromboplastin Ratio 1.1 Sodium Level 137 mmol/L Potassium Level 3.7 mmol/L Chloride Level 101 mmol/L Carbon Dioxide Level 27 mmol/L Anion Gap 9.0 mmol/L Blood Urea Nitrogen 13 mg/dl Creatinine 1.09 mg/dl Est Creatinine Clear Calc Drug Dose 98.5 ml/min Estimated GFR () 96.5 Estimated GFR (Non- 83.3 BUN/Creatinine Ratio 11.7 Random Glucose 105 mg/dl Calcium Level 9.2 mg/dl Magnesium Level 2.1 mg/dl Total Bilirubin 0.3 mg/dl Direct Bilirubin < 0.1 mg/dl Aspartate Amino Transf (AST/SGOT) 17 U/L Alanine Aminotransferase (ALT/SGPT) 25 U/L Alkaline Phosphatase 80 U/L Total Creatine Kinase 217 U/L Creatine Kinase MB 1.2 ng/ml Creatine Kinase MB Ratio 0.6 Troponin I < 0.015 ng/ml Total Protein 8.1 gm/dl Albumin 3.9 gm/dl Urine Color YELLOW Urine Appearance CLEAR Urine pH 8.0 Urine Specific [place] 1.010 Urine Protein NEG Urine Glucose (UA) NEG Urine Ketones NEG Urine Occult Blood NEG Urine Nitrite NEG Urine Bilirubin NEG Urine Urobilinogen NEG Urine Leukocyte Esterase NEG Urine Opiates Screen NEG Urine Methadone, Qualitative NEG Urine Barbiturates NEG Urine Phencyclidine (PCP) Level NEG Ur Amphetamine/Methamphetamine NEG MDMA (Ecstasy) Screen NEG Urine Benzodiazepines Screen NEG Urine Cocaine Metabolite NEG Urine Marijuana (THC) NEG Ammonia 32.0 umol/L Thyroid Stimulating Hormone (TSH) 3.240 uIu/ml Ethyl Alcohol mg/dL < 3.0 mg/dl Transferrin % Saturation % Test 03/22/17 03:55 03/22/17 11:47 White Blood Count 11.41 K/uL Red Blood Count 4.42 M/uL Hemoglobin 12.6 g/dL Hematocrit 36.8 % Mean Corpuscular Volume 83.3 fL Mean Corpuscular Hemoglobin 28.5 pg Mean Corpuscular Hemoglobin Concent 34.2 g/dl Platelet Count 270 K/uL Mean Platelet Volume 9.4 fL Neutrophils (%) (Auto) 51.7 % Lymphocytes (%) (Auto) 37.5 % Monocytes (%) (Auto) 8.9 % Eosinophils (%) (Auto) 1.3 % Basophils (%) (Auto) 0.4 % Neutrophils # (Auto) 5.89 K/uL Lymphocytes # (Auto) 4.28 K/uL Monocytes # (Auto) 1.02 K/uL Eosinophils # (Auto) 0.15 K/uL Basophils # (Auto) 0.05 K/uL RDW Standard Deviation 40.2 fL RDW Coefficient of Variation 13.3 % Immature Granulocyte % (Auto) 0.2 % Immature Granulocyte # (Auto) 0.02 K/uL Absolute Reticulocyte Count 0.07 10^6/uL Percent Reticulocyte Count 1.7 % Activated Partial Thromboplast Time 27.0 SECONDS Partial Thromboplastin Ratio 1.0 Sodium Level 139 mmol/L Potassium Level 3.7 mmol/L Chloride Level 106 mmol/L Carbon Dioxide Level 27 mmol/L Anion Gap 6.0 mmol/L Blood Urea Nitrogen 14 mg/dl Creatinine 1.09 mg/dl Est Creatinine Clear Calc Drug Dose 98.5 ml/min Estimated GFR () 96.5 Estimated GFR (Non- 83.3 BUN/Creatinine Ratio 12.9 Random Glucose 111 mg/dl Calcium Level 8.9 mg/dl Magnesium Level 2.0 mg/dl Iron Level 78 mcg/dl Total Iron Binding Capacity 225 mcg/dl Transferrin 192 mg/dl Transferrin % Saturation 29 % Ferritin 102.9 ng/ml Total Bilirubin 0.3 mg/dl Aspartate Amino Transf (AST/SGOT) 12 U/L Alanine Aminotransferase (ALT/SGPT) 23 U/L Alkaline Phosphatase 74 U/L Troponin I < 0.015 ng/ml Total Protein 7.0 gm/dl Albumin 3.4 gm/dl Globulin 3.6 gm/dl Albumin/Globulin Ratio 0.9 Triglycerides Level 147 mg/dl Cholesterol Level 102 mg/dl HDL Cholesterol 36 mg/dl LDL Cholesterol, Calculated 37 mg/dl VLDL Cholesterol, Calculated 29 mg/dl Cholesterol/HDL Ratio 2.8 Lipase 247 U/L Vitamin B12 Level 1328 pg/mL Folate 19.45 ng/mL Assessment & Plan DYSARTHRIA / LUE WEAKNESS Symptoms resolved. Neurology consulted. CT head negative. MRI brain without contrast negative. MRA cervical and intracranial vessels negative. MRI brain with contrast negative. Cardiac rhythm = sinus rhythm. Echo did not show any intracardiac thrombi or right to left shunts. Labs for hypercoagulable conditions ordered- results pending at time of discharge. [place] that symptoms may have been due to possible TIA, migraine, or panic attack. Aspirin and risk-factor modification recommended. SLEEP APNEA Continue CPAP. DYSLIPIDEMIA LDL-c 37. Continue atorvastatin. VTE PROPHYLAXIS SCD's. DISPOSITION Discharge to home. Family Medicine follow-up with Dr. Matute. Neurology follow-up with Dr. Rose. . Current Inpatient Medications: Current Inpatient Medications Medications (Trade) Dose Ordered Sig/Grace Route Start Time Stop Time Status Last Admin Dose Admin Acetaminophen (Tylenol Tab) 650 mg Q4H PRN PO 03/21/17 22:30 04/20/17 22:29 Nitroglycerin (Nitrostat Tab) 0.4 mg UD PRN SL 03/21/17 22:30 04/20/17 22:29 Aspirin (Ecotrin Tab) 81 mg QAM PO 03/22/17 09:00 04/21/17 08:59 03/22/17 07:58 81 MG Miscellaneous Information (Pharmacist Discharge Med Rec Consult) 1 ea UD PRN N/A 03/21/17 22:30 04/20/17 22:29 Atorvastatin Calcium (Lipitor Tab) 20 mg QPM PO 03/22/17 21:00 04/21/17 20:59 Trazodone HCl (Desyrel Tab) 50 mg HS PO 03/22/17 21:00 04/21/17 20:59 Amphetamine Aspartate/ Amphetam Sulf (Amphetamine Aspartate/Amph Sulf/Dextramphet) 10 mg BID@0600,1400 PO 03/22/17 06:00 04/05/17 05:59 03/22/17 13:24 10 MG Paroxetine HCl (pAXil) 30 mg DAILY PO 03/22/17 09:00 04/21/17 08:59 03/22/17 07:58 30 MG Tramadol HCl (Ultram Tab) not relieved by tylenol @ Q6H PRN PO 03/21/17 22:30 04/20/17 22:29 Prochlorperazine Edisylate 5 mg/ Syringe 5 ml @ 5 mls/min Q6H PRN IV 03/21/17 22:30 04/20/17 22:29 Lorazepam (Ativan Inj) 0.5 mg Q4H PRN IV 03/21/17 22:30 04/20/17 22:29 Morphine Sulfate (MoRPHine SULFATE INJ) 4 mg Q3H PRN IV 03/21/17 22:30 04/04/17 22:29 Lorazepam 0.5 mg/ Syringe 1 ml @ 1 mls/min Q4H PRN IV 03/21/17 23:15 04/20/17 23:14 Miscellaneous (Iv Fluids Completed) 1 ea PRN PRN N/A 03/22/17 05:00 03/22/18 04:59
[2017-03-22] MEDS ORDERED: ASPEC81 PO (16:02)
--- NOTE | 2017-03-22 16:14 | Discharge Instructions ---
Discharge Instructions Date of Service Mar 22, 2017. Admission Reason for Admission: tingling in arm and hand, slurred speech . Discharge Discharge Diagnosis / Problem: possible TIA (ministroke), possible migraine, possible panic attack Discharge Goals Goal(s): Improve disease control Activity Recommendations Activity Limitations: resume your previous activity . Instructions / Follow-Up Instructions / Follow-Up APPOINTMENTS: FAMILY MEDICINE 03/28/2017 10:20 AM (tried to change to 03/27, but Dr. Matute did not have any openings; please use [employer] to change appt if necessary) Aleks Matute MD NEUROLOGY Dr. Rose Please ask Dr. Matute for referral. OTHER INSTRUCTIONS: Your symptoms may have been due to TIA (transient ischemic attack or ministroke) , migraine, or panic attack. Take aspirin 81 mg daily for stroke prevention. Seek medical attention if you have: * temperature above 101 * chest pain or trouble breathing * abdominal pain, nausea, vomiting * diarrhea, dark stools or bloody stools * severe headache, unusual neurologic symptoms like double vision, trouble speaking, weakness in arms or legs, trouble walking) * any unanswered questions or concerns Call 911 if symptoms are severe. Call if you have any questions or problems. My cell # is [phone]. You can also reach a [facility] hospitalist on duty at [facility] 24 hours a day by calling [phone]. Please take good care of yourself. Erick Garcia . Risk Factors for Stroke: You can reduce your chances of stroke by working with your medical provider to adopt a healthy lifestyle. Some specific ways to lower your chance of stroke are: * If you are a smoker, now is the time to stop smoking cigarettes * If you are diabetic, improve the control of your blood sugars * Avoid excessive amounts of alcohol * Control high blood pressure * Lose weight if you are overweight * Be sure to lead an active lifestyle * Eat a healthy diet low in salt, cholesterol and fat You should know about other risk factors for stroke that you are unable to control. These include: * Age 55 years or older * Male gender * Certain racial groups: , or / * Family History of Stroke, Mini stroke or Heart Attack * Sickle Cell Disease Follow Up: It is important for you to keep your follow up appointments with your medical provider. Current Hospital Diet Patient's current hospital diet: AHA Diet (Heart Healthy) Discharge Diet Recommended Diet: AHA Diet (Heart Healthy) Procedures Procedures Performed: CT head, MRI brain without contrast, MRI brain with contrast- no signs of stroke MRA of blood vessels in neck and head- no signs of blockage echocardiogram- normal Pending Studies Studies pending at discharge: yes List of pending studies: several blood tests related to blood clotting system Laboratory Results Lipid Panel Test 03/22/17 03:55 Range/Units Triglycerides Level 147 0-150 mg/dl Cholesterol Level 102 0-200 mg/dl HDL Cholesterol 36 mg/dl Cholesterol/HDL Ratio 2.8 LDL Cholesterol, Calculated 37 mg/dl Medical Emergencies . Who to Call and When: Medical Emergencies: Call 911 immediately if you experience any of the following warning signs and symptoms of Stroke: * Sudden numbness or weakness of the face, arm or leg, especially on one side of the body * Sudden confusion, trouble speaking or understanding * Sudden trouble seeing in one or both eyes * Sudden trouble walking, dizziness, loss of balance or coordination * Sudden severe headache with no cause Do not delay calling 911 if you experience any warning signs or symptoms of a stroke. Delay in seeking medical attention may affect what treatments can be given to you. . Non-Emergent Contact Non-Emergency issues call your: Primary Care Provider, Hospital Doctor . . "Provider Documentation" section prepared by Erick Garcia. . Stroke Core Measures Reason no t-PA for Stroke: Treatment not indicated Reason no antithrom by day 2: Treatment provided - N/A Reason no antithrom at D/C: Treatment provided - N/A Reason no statin at D/C: Treatment provided - N/A Reason no anticoag w/a fib: Treatment not indicated VTE Core Measure Inpt VTE Proph given/why not?: SCD's
--- NOTE | 2017-03-22 18:26 | Discharge Summary ---
Discharge Summary Date of Service Mar 22, 2017. Discharge Summary Admission Date: Mar 21, 2017 at 21:57 Discharge Date: Mar 22, 2017 Discharge Disposition: Home Principal Diagnosis: dysarthria left upper extremity weakness . Secondary Diagnoses/Problems: Medical Problems: (1) Anxiety Status: Chronic (2) Attention deficit disorder Status: Chronic (3) Dyslipidemia Status: Chronic (4) Sleep apnea Permanent Comment: CPAP Status: Chronic . Procedures: CT head negative. MRI brain without contrast negative. MRA cervical and intracranial vessels negative. MRI brain with contrast negative. Cardiac monitoring- NSR Echo no intracardiac thrombi or right to left shunts . Consultations: Neurology with Dr. Rose . Pending Studies/Follow-Up: Results for hypercoagulable conditions pending at time of discharge. Please make referral to Neurology (Dr. Rose) re: possible TIA or migraine. . Medication Reconciliation New Medications: Aspirin (Aspirin EC Low Dose) 81 Mg Ectab 81 MG PO DAILY, #30 TAB 12 Refills Continued Medications: Amphetamine-Dextroamphetamine 10MG (Adderall 10MG) 1 Tab Tab 10 MG PO BID, TAB Atorvastatin (Lipitor) 20 Mg Tab 20 MG PO QPM, TAB Paroxetine Hcl (Paxil) 30 Mg Tab 30 MG PO DAILY, TAB Trazodone Hcl (Trazodone) 50 Mg Tab 50 MG PO HS, TAB Admission Information HPI (per Admitting provider): History obtained from patient, patient's family, and records. Medical history significant for hyperlipidemia, EMILY on CPAP, hemorrhoids, mood disorder, attention deficit. Patient was at work in the afternoon when he felt weak, had trouble focusing. Easily agitated than usual this week A coworker (who was a nurse) checked his pulse and blood pressure -both noted to be slightly elevated. The patient rested for a while. On his way home, he also noted transient vertical headache symptoms, achy. No blurred vision. He felt left arm noted to be a little weak and numb. No neck pain. When he got home, he was told he had transient slurred speech, right-sided facial drooping. Patient took his father's aspirin. Improving symptoms noted en route to the hospital. Symptoms currently resolved at the ER. Mother told him that a few days ago he was having some weird mouth asymmetry which patient was not aware of. . Physical Exam (per Admitting): VITAL SIGNS: Blood pressure was noted to be 131/87, pulse rate 87, RR 20, T 37, sats 97 on room air. GENERAL: Noted to be obese, slightly anxious, no respiratory distress. SKIN: Pallor. Warm. HEENT: Alopecia. Pale palpebral conjunctivae. No ptosis. Dry mucosa. No facial asymmetry. NECK: Short neck, nontender. CHEST: Clear to auscultation. No tenderness. HEART: Regular rate and rhythm, no murmur. ABDOMEN: Soft, nontender. EXTREMITIES: No edema, no tenderness. No gross deformity. NEUROLOGIC: Coherent. No gross focality. . Hospital Course DYSARTHRIA / LUE WEAKNESS Symptoms resolved. Neurology consulted. CT head negative. MRI brain without contrast negative. MRA cervical and intracranial vessels negative. MRI brain with contrast negative. Cardiac rhythm = sinus rhythm. Echo did not show any intracardiac thrombi or right to left shunts. Labs for hypercoagulable conditions ordered- results pending at time of discharge. [place] that symptoms may have been due to possible TIA, migraine, or panic attack. Aspirin and risk-factor modification recommended. SLEEP APNEA Continue CPAP. DYSLIPIDEMIA LDL-c 37. Continue atorvastatin. VTE PROPHYLAXIS SCD's. DISPOSITION Discharge to home. Family Medicine follow-up with Dr. Matute. Neurology follow-up with Dr. Rose. . Discharge Instructions Date of Service Mar 22, 2017. Admission Reason for Admission: tingling in arm and hand, slurred speech . Discharge Discharge Diagnosis / Problem: possible TIA (ministroke), possible migraine, possible panic attack Discharge Goals Goal(s): Improve disease control Activity Recommendations Activity Limitations: resume your previous activity . Instructions / Follow-Up Instructions / Follow-Up APPOINTMENTS: FAMILY MEDICINE 03/28/2017 10:20 AM (tried to change to 03/27, but Dr. Matute did not have any openings; please use [facility] to change appt if necessary) Aleks Matute MD NEUROLOGY Dr. Rose Please ask Dr. Matute for referral. OTHER INSTRUCTIONS: Your symptoms may have been due to TIA (transient ischemic attack or ministroke) , migraine, or panic attack. Take aspirin 81 mg daily for stroke prevention. Seek medical attention if you have: * temperature above 101 * chest pain or trouble breathing * abdominal pain, nausea, vomiting * diarrhea, dark stools or bloody stools * severe headache, unusual neurologic symptoms like double vision, trouble speaking, weakness in arms or legs, trouble walking) * any unanswered questions or concerns Call 911 if symptoms are severe. Call if you have any questions or problems. My cell # is [phone]. You can also reach a [facility] hospitalist on duty at [facility] 24 hours a day by calling [phone]. Please take good care of yourself. Erick Garcia . Risk Factors for Stroke: You can reduce your chances of stroke by working with your medical provider to adopt a healthy lifestyle. Some specific ways to lower your chance of stroke are: * If you are a smoker, now is the time to stop smoking cigarettes * If you are diabetic, improve the control of your blood sugars * Avoid excessive amounts of alcohol * Control high blood pressure * Lose weight if you are overweight * Be sure to lead an active lifestyle * Eat a healthy diet low in salt, cholesterol and fat You should know about other risk factors for stroke that you are unable to control. These include: * Age 55 years or older * Male gender * Certain racial groups: , or / * Family History of Stroke, Mini stroke or Heart Attack * Sickle Cell Disease Follow Up: It is important for you to keep your follow up appointments with your medical provider. Current Hospital Diet Patient's current hospital diet: AHA Diet (Heart Healthy) Discharge Diet Recommended Diet: AHA Diet (Heart Healthy) Procedures Procedures Performed: CT head, MRI brain without contrast, MRI brain with contrast- no signs of stroke MRA of blood vessels in neck and head- no signs of blockage echocardiogram- normal Pending Studies Studies pending at discharge: yes List of pending studies: several blood tests related to blood clotting system Laboratory Results Lipid Panel Test 03/22/17 03:55 Range/Units Triglycerides Level 147 0-150 mg/dl Cholesterol Level 102 0-200 mg/dl HDL Cholesterol 36 mg/dl Cholesterol/HDL Ratio 2.8 LDL Cholesterol, Calculated 37 mg/dl Medical Emergencies . Who to Call and When: Medical Emergencies: Call 911 immediately if you experience any of the following warning signs and symptoms of Stroke: * Sudden numbness or weakness of the face, arm or leg, especially on one side of the body * Sudden confusion, trouble speaking or understanding * Sudden trouble seeing in one or both eyes * Sudden trouble walking, dizziness, loss of balance or coordination * Sudden severe headache with no cause Do not delay calling 911 if you experience any warning signs or symptoms of a stroke. Delay in seeking medical attention may affect what treatments can be given to you. . Non-Emergent Contact Non-Emergency issues call your: Primary Care Provider, Hospital Doctor . . "Provider Documentation" section prepared by Erick Garcia. . Stroke Core Measures Reason no t-PA for Stroke: Treatment not indicated Reason no antithrom by day 2: Treatment provided - N/A Reason no antithrom at D/C: Treatment provided - N/A Reason no statin at D/C: Treatment provided - N/A Reason no anticoag w/a fib: Treatment not indicated VTE Core Measure Inpt VTE Proph given/why not?: SCD's .
[2017-03-22] MEDS ORDERED: ATORVASTATIN 20 MG TAB PO SCH (21:00)
[2017-03-22] MEDS ORDERED: TRAZODONE HCL 50 MG TAB PO SCH (21:00)
== END 2017-03-22 18:05 | disposition home or self-care (01) ==
LOC: C.EDB 18:50 → C.MED 21:57 → ENRESERV 22:19 → C.MED 03-22 00:02
PROVIDERS: ADMIT Hospitalist; ATTEND Hospitalist
DX: R47.1 Dysarthria and anarthria (principal); R53.1 Weakness; F90.9 Attention-deficit hyperactivity disorder, unspecified type; F41.9 Anxiety disorder, unspecified; E78.5 Hyperlipidemia, unspecified; E66.9 Obesity, unspecified; G47.33 Obstructive sleep apnea (adult) (pediatric); F39 Unspecified mood [affective] disorder; Z79.899 Other long term (current) drug therapy